=== PATIENT | female | born 1935 ===

== ENCOUNTER 2018-03-07 11:00 | Inpatient (IN) | payer OTHER ==
[~2018-03-07] VITALS: Ht 152.4 cm; Wt 79.4 kg
[2018-03-12] MEDS ORDERED: LEVAQUIN500 MG PO (14:56)
== END 2018-03-12 15:16 | disposition home or self-care (01) | DRG 291 ==
LOC: ER 11:00 → ICU-2 20:37 → SURH 03-10 14:37 → MEDI 03-10 14:37 → SURH 03-12 15:16
PROC: 3E0F7GC Introduction of Other Therapeutic Substance into Respiratory Tract, Via Natural or Artificial Opening (ICD-10-PCS; principal; 2018-03-07)
PROC: 4A033R1 Measurement of Arterial Saturation, Peripheral, Percutaneous Approach (ICD-10-PCS; 2018-03-07)
PROC: 8E0ZXY6 Isolation (ICD-10-PCS; 2018-03-07)
PROC: BB24ZZZ Computerized Tomography (CT Scan) of Bilateral Lungs (ICD-10-PCS; 2018-03-08)
PROC: B246ZZZ Ultrasonography of Right and Left Heart (ICD-10-PCS; 2018-03-09)
PROC: 4A12X4Z Monitoring of Cardiac Electrical Activity, External Approach (ICD-10-PCS; 2018-03-10)
DX: I13.0 Hypertensive heart and chronic kidney disease with heart failure and stage 1 through stage 4 chronic kidney disease, or unspecified chronic kidney disease (principal); I50.33 Acute on chronic diastolic (congestive) heart failure; J09.X1 Influenza due to identified novel influenza A virus with pneumonia; J18.8 Other pneumonia, unspecified organism; J44.1 Chronic obstructive pulmonary disease with (acute) exacerbation; J90 Pleural effusion, not elsewhere classified; B37.0 Candidal stomatitis; N18.1 Chronic kidney disease, stage 1; I27.29 Other secondary pulmonary hypertension; I48.0 Paroxysmal atrial fibrillation; K76.89 Other specified diseases of liver; D63.1 Anemia in chronic kidney disease; D69.59 Other secondary thrombocytopenia; R09.02 Hypoxemia; I34.0 Nonrheumatic mitral (valve) insufficiency; K76.1 Chronic passive congestion of liver

== ENCOUNTER → 2019-03-28 | Outpatient (CLI) | payer OTHER ==
[~2019-03-28] MED LIST: LEVAQUIN500 MG PO
== END | disposition home or self-care (01) ==
LOC: NUCLEAR 09:50
DX: I27.0 Primary pulmonary hypertension (principal); I50.21 Acute systolic (congestive) heart failure